=== PATIENT | male | born 1950 | race Caucasian/White ===

== ENCOUNTER 2021-03-13 07:45 | Day surgery (SDC) | payer OTHER ==
[~2021-03-13] VITALS: Ht 172.7 cm; Wt 123.8 kg
[~2021-03-13 07:45] MED LIST: ASPI81CH PO; ATOR80 PO; CEPH500 PO; GLYB3 PO; HYDR1TAB94 PO; LOSARTAN POTASS50 MG PO; METF500 PO; POTCHL20ER PO; PRED20 PO; TORSE20 PO; XARELTO20 MG PO
[2021-03-13] MEDS ORDERED: ALLO100 PO (08:23)
== END 2021-03-13 15:15 | disposition home or self-care (01) ==
LOC: MHTC 07:45
DX: I48.11 Longstanding persistent atrial fibrillation (principal); I49.5 Sick sinus syndrome; I25.10 Atherosclerotic heart disease of native coronary artery without angina pectoris; E78.5 Hyperlipidemia, unspecified; E11.9 Type 2 diabetes mellitus without complications; I10 Essential (primary) hypertension; Z95.2 Presence of prosthetic heart valve; Z95.5 Presence of coronary angioplasty implant and graft; Z95.1 Presence of aortocoronary bypass graft; Z79.01 Long term (current) use of anticoagulants; Z79.84 Long term (current) use of oral hypoglycemic drugs
CPT/HCPCS: 33207; 71046; 93005; 93010; 99152; 99153; C1786; C1894; C1898; J0690; J1580; J2250; J3010; J7040

== ENCOUNTER 2022-07-29 12:07 | Emergency (ER) | payer OTHER ==
[~2022-07-29] VITALS: Ht 172.7 cm; Wt 127.0 kg
[~2022-07-29 12:07] MED LIST changes: +ALLO100 PO; +Isosorbide Mono30 MG PO; +SPIR25 PO
[2022-07-29 13:06] LABS: BASOPHILS ABSOLUTE AUTO 0.02 K/mm3 (0.00-0.23); BASOPHILS PERCENT AUTO 0 % (0-2); EOSINOPHILS ABSOLUTE AUTO 0.12 K/mm3 (0.00-0.68); EOSINOPHILS PERCENT AUTO 2 % (0-6); IMMATURE GRAN ABSOLUTE AUTO 0.03 K/mm3 (0.00-0.10); IMMATURE GRAN PERCENT AUTO 0 % (0-1); LYMPHOCYTES ABSOLUTE AUTO 0.91 K/mm3 (0.84-5.20); LYMPHOCYTES PERCENT AUTO 11 % (21-46); MONOCYTES PERCENT AUTO 10 % (4-13); Mean Corpuscular HGB 22.9 pg (26.0-34.0); Mean Corpuscular Volume 79 fL (80-100); NEUTROPHILS ABSOLUTE AUTO 6.16 K/mm3 (1.96-9.15); NEUTROPHILS PERCENT AUTO 77 % (41-73); NRBC ABSOLUTE 0.02 K/mm3 (0.00-0.02); NRBC Auto 0.2 /100 WBC (0.0-0.2); Platelet Count 116 K/mm3 (150-400); RDW Coefficient Variation 18.7 % (11.7-14.2); RDW Standard Deviation 53.5 fL (35.1-46.3); Red Blood Cell Count 2.53 M/mm3 (4.30-5.90); White Blood Cell Count 8.04 K/mm3 (4.00-11.30)
[2022-07-29 13:13] LABS: Hemoglobin 5.8 g/dL (13.5-17.5)
[2022-07-29 13:39] LABS: Albumin, Blood 3.6 g/dL (3.4-5.0); Albumin/Globulin Ratio 0.9 (0.8-1.8); Bilirubin, Total 0.5 mg/dL (0.1-1.0); Bun/Creatinine Ratio 43.7 (12.0-20.0); Calcium, Blood 8.7 mg/dL (8.5-10.1); Creatinine, Blood 1.83 mg/dL (0.60-1.20); Globulin, Blood 3.9 g/dL (2.2-4.0); Potassium, Blood 5.3 mmol/L (3.5-5.5); Total Protein, Blood 7.5 g/dL (6.4-8.2)
== END 2022-07-29 17:45 | disposition short-term general hospital (02) ==
LOC: ER 12:07
PROVIDERS: Physician Assistant
DX: K92.2 Gastrointestinal hemorrhage, unspecified (principal); R79.89 Other specified abnormal findings of blood chemistry; R06.00 Dyspnea, unspecified; D50.9 Iron deficiency anemia, unspecified; I10 Essential (primary) hypertension; Z79.899 Other long term (current) drug therapy; Z79.84 Long term (current) use of oral hypoglycemic drugs; Z79.02 Long term (current) use of antithrombotics/antiplatelets; I25.2 Old myocardial infarction; Z95.5 Presence of coronary angioplasty implant and graft; Z95.0 Presence of cardiac pacemaker; Z95.2 Presence of prosthetic heart valve
CPT/HCPCS: 36415; 71046; 80053; 83880; 84484; 85025; 86850; 86900; 86901; 86923; 93005; 93010; C9113; J7030; P9016

== ENCOUNTER 2022-09-13 10:58 | Emergency (ER) | payer OTHER ==
[~2022-09-13] VITALS: Ht 172.7 cm; Wt 136.1 kg
[~2022-09-13 10:58] MED LIST changes: +ATOR40TA PO; -ATOR80 PO; -GLYB3 PO; +GLYBURIDE5 M2 PO
[2022-09-13 12:54] LABS: BASOPHILS ABSOLUTE AUTO 0.02 K/mm3 (0.00-0.23); BASOPHILS PERCENT AUTO 0 % (0-2); EOSINOPHILS ABSOLUTE AUTO 0.02 K/mm3 (0.00-0.68); EOSINOPHILS PERCENT AUTO 0 % (0-6); IMMATURE GRAN ABSOLUTE AUTO 0.03 K/mm3 (0.00-0.10); IMMATURE GRAN PERCENT AUTO 0 % (0-1); LYMPHOCYTES ABSOLUTE AUTO 0.74 K/mm3 (0.84-5.20); LYMPHOCYTES PERCENT AUTO 9 % (21-46); MONOCYTES ABSOLUTE AUTO 0.92 K/mm3 (0.16-1.47); MONOCYTES PERCENT AUTO 11 % (4-13); Mean Corpuscular HGB 23.1 pg (26.0-34.0); Mean Corpuscular HGB Conc 29.4 g/dL (31.5-36.5); Mean Corpuscular Volume 79 fL (80-100); NEUTROPHILS ABSOLUTE AUTO 6.92 K/mm3 (1.96-9.15); NEUTROPHILS PERCENT AUTO 80 % (41-73); NRBC ABSOLUTE 0.02 K/mm3 (0.00-0.02); NRBC Auto 0.2 /100 WBC (0.0-0.2); Platelet Count 127 K/mm3 (150-400); RDW Coefficient Variation 19.6 % (11.7-14.2); RDW Standard Deviation 56.3 fL (35.1-46.3); Red Blood Cell Count 2.16 M/mm3 (4.30-5.90); White Blood Cell Count 8.65 K/mm3 (4.00-11.30)
[2022-09-13 13:11] LABS: Albumin, Blood 3.2 g/dL (3.4-5.0); Albumin/Globulin Ratio 0.8 (0.8-1.8); Bilirubin, Total 0.4 mg/dL (0.1-1.0); Bun/Creatinine Ratio 40.9 (12.0-20.0); Calcium, Blood 8.3 mg/dL (8.5-10.1); Creatinine, Blood 2.08 mg/dL (0.60-1.20); Globulin, Blood 3.8 g/dL (2.2-4.0); Potassium, Blood 5.7 mmol/L (3.5-5.5)
[2022-09-13] MEDS ORDERED: LOSARTAN POTAS100 M1 PO (14:09)
[2022-09-13] MEDS ORDERED: PANTOPRAZOLE SO40 M2 PO (14:10)
[2022-09-13] MEDS ORDERED: XARELTO20 MG PO (14:11)
[2022-09-13 16:55] VITALS: BP 107/63
== END 2022-09-13 17:15 | disposition short-term general hospital (02) ==
LOC: ER 10:58
PROVIDERS: Student in an Organized Health Care Education/Training Program
DX: K92.2 Gastrointestinal hemorrhage, unspecified (principal); D64.9 Anemia, unspecified; N17.9 Acute kidney failure, unspecified; E87.5 Hyperkalemia; I95.9 Hypotension, unspecified; D69.6 Thrombocytopenia, unspecified; R77.8 Other specified abnormalities of plasma proteins; I51.7 Cardiomegaly; R79.0 Abnormal level of blood mineral; Z88.2 Allergy status to sulfonamides; Z79.899 Other long term (current) drug therapy; Z79.84 Long term (current) use of oral hypoglycemic drugs; I25.2 Old myocardial infarction; I10 Essential (primary) hypertension; I48.91 Unspecified atrial fibrillation
CPT/HCPCS: 36415; 36430; 71046; 80053; 83880; 84484; 85025; 86850; 86900; 86901; 86923; 93005; 93010; 96361; 96374; 96375; 99285-25; C9113; J1815; J7030; J7799; P9016

== ENCOUNTER 2022-10-22 03:15 | Day surgery (SDC) | payer OTHER ==
[~2022-10-22 03:15] MED LIST changes: +LOSARTAN POTAS100 M1 PO; +PANTOPRAZOLE SO40 M2 PO
== END 2022-10-22 22:48 | disposition home or self-care (01) ==
LOC: WOUND 03:15
DX: L03.115 Cellulitis of right lower limb (principal); L03.116 Cellulitis of left lower limb; E11.51 Type 2 diabetes mellitus with diabetic peripheral angiopathy without gangrene; D50.9 Iron deficiency anemia, unspecified
CPT/HCPCS: A9270; G0463

== ENCOUNTER → 2022-10-29 | Day surgery (SDC) | payer OTHER | LOC: WOUND 03:08 | DX: Z48.00 Encounter for change or removal of nonsurgical wound dressing (principal); E11.65 Type 2 diabetes mellitus with hyperglycemia; D50.9 Iron deficiency anemia, unspecified | CPT/HCPCS: A9270; G0463 ==

== ENCOUNTER 2024-05-22 11:43 | Emergency (ER) | payer OTHER ==
[~2024-05-22] VITALS: Ht 172.7 cm; Wt 113.4 kg
[~2024-05-22 11:43] MED LIST changes: +CLIN150 PO; +FEROSUL325 M1 PO; +METO5 PO
[2024-05-22 12:05] VITALS: BP 150/70
[2024-05-22] MEDS ORDERED: Zovirax800 MG PO (12:14)
[2024-05-22] MEDS ORDERED: Norco 5-325 Ta1 EACH PO (12:14)
== END 2024-05-22 12:14 | disposition home or self-care (01) ==
LOC: ER 11:43
DX: B02.9 Zoster without complications (principal); I25.2 Old myocardial infarction; I11.0 Hypertensive heart disease with heart failure; I50.9 Heart failure, unspecified
CPT/HCPCS: 93005; 93010; 99283-25